=== PATIENT | female | born 1990 | race Caucasian/White ===

== ENCOUNTER 2017-02-21 16:06 | Emergency (ER) | payer OTHER ==
[~2017-02-21] VITALS: Ht 167.6 cm; Wt 77.1 kg
[2017-02-21 16:24] VITALS: BP 121/69
--- NOTE | 2017-02-21 16:35 | PHYS DOC ---
Past Medical History Past Medical History: No Pertinent History Past Surgical History: No Surgical History Alcohol Use: None Drug Use: None Adult General Chief Complaint Chief Complaint: ANIMAL BITE [facility] HPI Patient is a 26 year old female who presents with.bite to the right forearm. She was her sister and their dogs were fighting over bone and he tried to separate the dogs when the dog's bit them on the right arms. She states her tetanus shot is up-to-date. She denies any numbness tingling in her arms or fingers. She states the dogs are up-to-date on their vaccinations. Review of Systems Review of Systems Constitutional: Denies fever or chills [] Eyes: Denies change in visual acuity, redness, or eye pain [] HENT: Denies nasal congestion or sore throat [] Respiratory: Denies cough or shortness of breath [] Cardiovascular: No additional information not addressed in HPI [] GI: Denies abdominal pain, nausea, vomiting, bloody stools or diarrhea [] : Denies dysuria or hematuria [] Musculoskeletal: Denies back pain or joint pain [] Integument: Denies rash, positive for skin lesions [] Neurologic: Denies headache, focal weakness or sensory changes [] Endocrine: Denies polyuria or polydipsia [] Current Medications Current Medications Current Medications Medications (Trade) Dose Ordered Sig/Tim Start Time Stop Time Status Last Admin Dose Admin Lidocaine/ Epinephrine (Let Topical) 3 ml 1X ONCE 02/21/17 17:15 02/21/17 17:16 DC 02/21/17 17:19 3 ML Allergies Allergies Allergies Coded Allergies Type Severity Reaction Last Updated Verified No Known Drug Allergies 02/21/17 No Physical Exam Physical Exam Constitutional: Well developed, well nourished, no acute distress, non-toxic appearance. [] HENT: Normocephalic, atraumatic, bilateral external ears normal, oropharynx moist, no oral exudates, nose normal. [] Eyes: PERRLA, EOMI, conjunctiva normal, no discharge. [] Neck: Normal range of motion, no tenderness, supple, no stridor. [] Cardiovascular:Heart rate regular rhythm, no murmur [] Lungs & Thorax: Bilateral breath sounds clear to auscultation [] Abdomen: Bowel sounds normal, soft, no tenderness, no masses, no pulsatile masses. [] Skin: Warm, dry, no erythema, no rash. 2 puncture wounds on the right forearm one on the dorsal and the other on the ventral aspect proximal to millimeters in size. Back: No tenderness, no CVA tenderness. [] Extremities: No tenderness, no cyanosis, no clubbing, ROM intact, no edema. [] Neurologic: Alert and oriented X 3, normal motor function, normal sensory function, no focal deficits noted. [] Psychologic: Affect normal, judgement normal, mood normal. [] Current Patient Data Vital Signs Vital Signs Date Time Temp Pulse Resp B/P (MAP) Pulse Ox O2 Delivery O2 Flow Rate FiO2 02/21/17 16:24 98.4 111 16 121/69 (86) 98 Room Air 98.4 EKG EKG [] Radiology/Procedures Radiology/Procedures [facility] [address] [place] [address] IMAGING REPORT Signed PATIENT: BUTCH STEELE ACCOUNT: [id number] : 1990 LOCATION: ER AGE: 26 SEX: F EXAM STATUS: REG ER ORD. PHYSICIAN: MAX DICKERSON MD REASON: dog bite PROCEDURE: FOREARM RIGHT EXAM: Right forearm, 2 views. HISTORY: Dog bite. COMPARISON: None. FINDINGS: Frontal and lateral views of the right forearm are obtained. There is no fracture, dislocation or subluxation. There is soft tissue gas along the ventral aspect of the forearm, consistent with a penetrating injury. No foreign body is seen. IMPRESSION: Soft tissue gas along the ventral forearm, consistent with a penetrating injury. No foreign body or fracture is seen. DICTATED and SIGNED BY: JEIMY CARTER MD DATE: 02/21/17 2791 CC: MAX DICKERSON MD; SUJATHA BORJAS MD ~ Impressions: Dog bite to right forearm Course & Med Decision Making Course & Med Decision Making Pertinent Labs and Imaging studies reviewed. (See chart for details) Her tetanus status is up-to-date, x-ray did not show any foreign bodies. Wounds were cleaned and repaired with Steri-Strips by the nursing staff. She's being discharged with Augmentin for 7 days. Return precautions given. She is agreeable plan being discharged in stable condition at this time. Dragon Disclaimer Dragon Disclaimer This electronic medical record was generated, in whole or in part, using a voice recognition dictation system. Laceration Repair Lac Repair Indication: Dog bite Procedure: The patient was placed in the appropriate position and anesthesia around the right wrist, let was applied. The area was then cleaned with normal saline. The laceration was closed with Steri-Strips. Total repaired wound length: 2 wounds total, each 2 mm in diameter The patient tolerated the procedure well. Complications: No complications noted. Departure Departure Impression: Primary Impression: Dog bite Disposition: 01 HOME, SELF-CARE Patient Instructions: Laceration Care, Adult Additional Instructions: You'll need take antibiotic for the next 7 days. Please keep an eye on the wounds and they show any signs of infections return to ER immediately. Scripts Amoxicillin/Potassium Clav (AUGMENTIN 875-125 TABLET) 1 Each Tablet 1 TAB PO BID, #14 TAB Prov: MAX DICKERSON MD 02/21/17 Problem Qualifiers Primary Impression: Dog bite Encounter type: initial encounter Qualified Codes: W54.0XXA - Bitten by dog , initial encounter MAX DICKERSON MD Feb 21, 2017 16:34
--- NOTE | 2017-02-21 17:12 | RAD ---
EXAM: Right forearm, 2 views. HISTORY: Dog bite. COMPARISON: None. FINDINGS: Frontal and lateral views of the right forearm are obtained. There is no fracture, dislocation or subluxation. There is soft tissue gas along the ventral aspect of the forearm, consistent with a penetrating injury. No foreign body is seen. IMPRESSION: Soft tissue gas along the ventral forearm, consistent with a penetrating injury. No foreign body or fracture is seen.
[2017-02-21] MEDS ORDERED: LIDOCAINE/EPI/TETRACAINE TOPICAL GEL 3 ML. TP ONE (17:15)
[2017-02-21] MEDS ORDERED: AMOX1TAB61 PO (18:00)
== END 2017-02-21 18:14 | disposition home or self-care (01) ==
LOC: ER 16:06
DX: S51.851A Open bite of right forearm, initial encounter (principal); W54.0XXA Bitten by dog, initial encounter; Y93.89 Activity, other specified; Y92.89 Other specified places as the place of occurrence of the external cause; Y99.8 Other external cause status
CPT/HCPCS: 73090; 99284